=== PATIENT | female | born 1985 | race Caucasian/White ===

== ENCOUNTER 2018-05-11 10:20 | Emergency (ER) | payer OTHER ==
[2018-05-11 10:25] VITALS: RESP 18
[2018-05-11] MEDS ORDERED: KETOROLAC 30 MG/ML 1 ML VIAL IVP STA (10:30)
[2018-05-11] MEDS ORDERED: ONDANSETRON 4 MG/2 ML VIAL IVP STA (10:30)
[2018-05-11] MEDS ORDERED: SODIUM CHLORIDE 0.9% 1,000 ML IV STA (10:30)
--- NOTE | 2018-05-11 10:32 | ED ---
Abdominal Pain HPI - General Chief Complaint: Abdominal Pain Stated Complaint: ABDOMINAL PAIN Time Seen by Provider: 05/11/18 10:26 Source: patient, RN notes reviewed Mode of arrival: ambulatory Limitations: no limitations - History of Present Illness Initial Comments: This is a 32-year-old female presents emergency Department with chief complaint of right flank pain. Patient states it started slightly last night worsened this morning. She now has developed nausea and vomiting. Denies any diarrhea, constipation, dysuria, hematuria. Patient's had prior hysterectomy no other abdominal surgeries. Patient denies fever, chills, chest pain or shortness of breath. Patient states that she has no history kidney stones. Patient offers no other complaints. She states nothing makes the pain feel better or worse. - Related Data Home Medications Medication Instructions Recorded Confirmed No Known Home Medications 01/06/14 01/06/14 Allergies Allergy/AdvReac Type Severity Reaction Status Date / Time adhesive Allergy Unknown Unknown Verified 01/06/14 09:25 codeine Allergy Unknown Unknown Verified 01/06/14 09:25 morphine Allergy Unknown Unknown Verified 01/06/14 09:25 Sulfa (Sulfonamide Allergy Unknown Unknown Verified 01/06/14 09:25 Antibiotics) Review of Systems ROS Statement: Those systems with pertinent positive or pertinent negative responses have been documented in the HPI. ROS Other: All systems not noted in ROS Statement are negative. Past Medical History Past Medical History: Asthma History of Any Multi-Drug Resistant Organisms: None Reported Past Surgical History: Section, Hysterectomy Additional Past Surgical History / Comment(s): ablation-cervical, upper and lower gi scope Past Psychological History: No Psychological Hx Reported Smoking Status: Current every day smoker Past Alcohol Use History: None Reported Past Drug Use History: Marijuana General Exam Limitations: no limitations General appearance: alert, in no apparent distress Respiratory exam: Present: normal lung sounds bilaterally. Absent: respiratory distress, wheezes, rales, rhonchi, stridor Cardiovascular Exam: Present: regular rate, normal rhythm, normal heart sounds. Absent: systolic murmur, diastolic murmur, rubs, gallop, clicks GI/Abdominal exam: Present: soft, tenderness (Minimal discomfort with palpation over the right lower), normal bowel sounds. Absent: distended, guarding, rebound, rigid Back exam: Absent: CVA tenderness (R), CVA tenderness (L) Skin exam: Present: warm, dry, intact, normal color. Absent: rash Course Vital Signs 05/11/18 10:23 Temperature 97.9 F Pulse Rate 85 Respiratory 18 Rate Blood Pressure 119/63 O2 Sat by Pulse 98 Oximetry Medical Decision Making - Medical Decision Making 32-year-old female presented emergency Department for right-sided abdominal pain. Patient had lab work, CT which showed no acute abnormality. Patient's pain initially seen to be related to a kidney stone though not evident on CT. Patient has had moderate stool on the right side and be contrary to patient's pain. Patient will be discharged with ibuprofen and advise follow-up PCP and return for any worsening symptoms. - Lab Data Result diagrams: 05/11/18 10:45 05/11/18 10:45 Lab Results 05/11/18 05/11/18 05/11/18 Range/Units 10:45 10:45 10:45 WBC 9.0 (3.8-10.6) k/uL RBC 5.18 (3.80-5.40) m/uL Hgb 15.8 (11.4-16.0) gm/dL Hct 46.0 (34.0-46.0) % MCV 88.8 (80.0-100.0) fL MCH 30.6 (25.0-35.0) pg MCHC 34.4 (31.0-37.0) g/dL RDW 12.6 (11.5-15.5) % Plt Count 268 (150-450) k/uL Neutrophils % 68 % Lymphocytes % 20 % Monocytes % 8 % Eosinophils % 2 % Basophils % 1 % Neutrophils # 6.1 (1.3-7.7) k/uL Lymphocytes # 1.8 (1.0-4.8) k/uL Monocytes # 0.7 (0-1.0) k/uL Eosinophils # 0.2 (0-0.7) k/uL Basophils # 0.0 (0-0.2) k/uL Sodium 139 (137-145) mmol/L Potassium 5.0 (3.5-5.1) mmol/L Chloride 106 (98-107) mmol/L Carbon Dioxide 23 (22-30) mmol/L Anion Gap 10 mmol/L BUN 12 (7-17) mg/dL Creatinine 0.70 (0.52-1.04) mg/dL Est GFR (CKD-EPI)AfAm >90 (>60 ml/min/1.73 sqM) Est GFR (CKD-EPI)NonAf >90 (>60 ml/min/1.73 sqM) Glucose 102 H (74-99) mg/dL Calcium 9.4 (8.4-10.2) mg/dL Total Bilirubin 0.5 (0.2-1.3) mg/dL AST 36 (14-36) U/L ALT 38 (9-52) U/L Alkaline Phosphatase 47 (38-126) U/L Total Protein 7.6 (6.3-8.2) g/dL Albumin 4.1 (3.5-5.0) g/dL Amylase 57 (30-110) U/L Lipase 40 (23-300) U/L Urine Color Light Yellow Urine Appearance Clear (Clear) Urine pH 5.5 (5.0-8.0) Ur Specific [place] 1.014 (1.001-1.035) Urine Protein Negative (Negative) Urine Glucose (UA) Negative (Negative) Urine Ketones Negative (Negative) Urine Blood Small H (Negative) Urine Nitrite Negative (Negative) Urine Bilirubin Negative (Negative) Urine Urobilinogen <2.0 (<2.0) mg/dL Ur Leukocyte Esterase Negative (Negative) Urine RBC 1 (0-5) /hpf Urine WBC <1 (0-5) /hpf Ur Squamous Epith Cells 1 (0-4) /hpf Urine Mucus Rare H (None) /hpf Disposition Clinical Impression: Abdominal pain Disposition: HOME SELF-CARE Condition: Stable Instructions: Abdominal Pain (ED) Additional Instructions: Please return to the Emergency Department if symptoms worsen or any other concerns. Is patient prescribed a controlled substance at d/c from ED?: No Referrals: Collin Galvez MD [Primary Care Provider] - 1-2 days Time of Disposition: 12:42
[2018-05-11 11:16] LABS: Appearance,Urine Clear (Clear); Bilirubin,Urine Negative (Negative); Blood,Urine Small (Negative); Color,Urine Light Yellow; Glucose,Urine (UA) Negative (Negative); Ketones,Urine Negative (Negative); Leukocyte Esterase,Urine Negative (Negative); Mucus,Urine Rare /hpf; Nitrite,Urine Negative (Negative); PH, Urine 5.5 (5.0-8.0); Protein,Urine Negative (Negative); RBC,Urine 1 /hpf (0-5); Specific Gravity,Urine 1.014 (1.001-1.035); Squamous Epithelial Cell,Urine 1 /hpf (0-4); Urobilinogen,Urine <2.0 mg/dL (<2.0); WBC,Urine <1 /hpf (0-5)
[2018-05-11 11:21] LABS: Albumin 4.1 g/dL (3.5-5.0); Amylase 57 U/L (30-110); Anion Gap 10 mmol/L; Calcium 9.4 mg/dL (8.4-10.2); Carbon Dioxide 23 mmol/L (22-30); Chloride 106 mmol/L (98-107); Glucose 102 mg/dL (74-99); Lipase 40 U/L (23-300); Sodium 139 mmol/L (137-145); Total Bilirubin 0.5 mg/dL (0.2-1.3); Total Protein 7.6 g/dL (6.3-8.2)
[2018-05-11 11:25] LABS: ALT 38 U/L (9-52); AST 36 U/L (14-36); Alkaline Phosphatase 47 U/L (38-126); Blood Urea Nitrogen 12 mg/dL (7-17)
[2018-05-11 11:26] LABS: RDW 12.6 % (11.5-15.5)
[2018-05-11 11:27] LABS: Basophils % (A) 1 %; Eosinophils # (A) 0.2 k/uL (0-0.7); Eosinophils % (A) 2 %; HGB 15.8 gm/dL (11.4-16.0); Lymphocytes # (A) 1.8 k/uL (1.0-4.8); Lymphocytes % (A) 20 %; MCH 30.6 pg (25.0-35.0); MCHC 34.4 g/dL (31.0-37.0); MCV 88.8 fL (80.0-100.0); Mean Platelet Volume 8.6; Monocytes # (A) 0.7 k/uL (0-1.0); Monocytes % (A) 8 %; Neutrophils # (A) 6.1 k/uL (1.3-7.7); Neutrophils % (A) 68 %; Platelet Count 268 k/uL (150-450); RBC 5.18 m/uL (3.80-5.40)
--- NOTE | 2018-05-11 12:35 | CT ---
EXAMINATION TYPE: CT abdomen pelvis w con DATE OF EXAM: 05/11/2018 REFERENCE: Previous study dated 05/29/2010. HISTORY: Right flank pain CT DLP: 541.7 mGy Automated exposure control for dose reduction was used. TECHNIQUE: Helical acquisition through the abdomen and pelvis was obtained following the oral ingesti on of without Oral Contrast and following intravenous administration of 100 mL of Isovue 300. The camille a was reformatted in axial, coronal and sagittal projections. FINDINGS: Visualized portions of the lungs are clear. There is no pleural or pericardial fluid. The h eart is not enlarged. Within the abdomen, the liver, spleen and gallbladder are unremarkable. Both adrenal glands are normal. Both kidneys demonstrate function and appear morphologically normal. The pancreas is unremarkable. There is no significant retroperitoneal, iliac or inguinal adenopathy. The bladder is unremarkable. The uterus and ovaries are not visualized. There is no significant diverticular change and there is no radiographic evidence of diverticulitis. The appendix is normal. Small bowel loops are normal in caliber. There is no free fluid and no free air. There is mild facet arthropathy at L5-S1 level. No bony lesion is seen. IMPRESSION: NO ACUTE INFLAMMATORY ABNORMALITY.
[2018-05-11 13:32] VITALS: BP 98/49; PULSE 60; TEMP 98
== END 2018-05-11 13:32 | disposition home or self-care (01) ==
LOC: EC 10:20
DX: R10.31 Right lower quadrant pain (principal); R11.2 Nausea with vomiting, unspecified; F17.200 Nicotine dependence, unspecified, uncomplicated; Z91.048 Other nonmedicinal substance allergy status; Z88.5 Allergy status to narcotic agent; Z88.2 Allergy status to sulfonamides; Z90.710 Acquired absence of both cervix and uterus
CPT/HCPCS: 36415; 80053; 82150; 83690; 85025; 81001; 74177; 99284; 96374; 96375; 96361 ×2; J2405; J1885; Q9967

== ENCOUNTER → 2018-07-24 | Outpatient (CLI) | payer OTHER ==
--- NOTE | 2018-07-24 11:34 | MR ---
EXAMINATION TYPE: MR hummel/elsa wo con DATE OF EXAM: 07/24/2018 9:16 AM COMPARISON: NONE HISTORY: Neck pain, Low back pain Multiplanar MultiSpin echo imaging of the cervical spine was performed. Comparison: none C2-C3: No evidence for degenerative disc disease. No disc bulge/herniation or protrusion. No Canal stenosis. Foramina are patent bilaterally. C3-C4: No evidence for degenerative disc disease. No disc bulge/herniation or protrusion. No Canal stenosis. Foramina are patent bilaterally. C4-C5: No evidence for degenerative disc disease. No disc bulge/herniation or protrusion. No Canal stenosis. Foramina are patent bilaterally. C5-C6: No evidence for degenerative disc disease. No disc bulge/herniation or protrusion. No Canal stenosis. Foramina are patent bilaterally. C6-C7: Mild decreased signal loss of height. Mild posterior disc bulge. No Canal stenosis. Foramina are patent bilaterally. C7-T1: No evidence for degenerative disc disease. No disc bulge/herniation or protrusion. No Canal stenosis. Foramina are patent bilaterally. Cervical segments are intact. There is normal alignment. Cervical spinal cord is of normal signal. Craniovertebral junction relationships are within normal limits. IMPRESSION: 1. Disc desiccation and disc bulging noted at C6-7. EXAMINATION TYPE: MR hobbs wo con DATE OF EXAM: 07/24/2018 9:16 AM COMPARISON: NONE HISTORY: Neck pain, Low back pain Multiplanar, MultiSpin echo imaging of the lumbar spine was performed. L1-L2: Normal disc appearance without desiccation. No herniation, protrusion or disc bulging. No ca nal stenosis is present. Foramina are patent bilaterally. L2-L3: Normal disc appearance without desiccation. No herniation, protrusion or disc bulging. No ca nal stenosis is present. Foramina are patent bilaterally. L3-L4: Normal disc appearance without desiccation. No herniation, protrusion or disc bulging. No ca nal stenosis is present. Foramina are patent bilaterally. L4-L5: Normal disc appearance without desiccation. No herniation, protrusion or disc bulging. No ca nal stenosis is present. Foramina are patent bilaterally. L5-S1: Normal disc appearance without desiccation. No herniation, protrusion or disc bulging. No ca nal stenosis is present. Foramina are patent bilaterally. Lumbar segments are intact. No paraspinal masses are identified. Conus medullaris has a normal appe arance. IMPRESSION: 1. Normal study.
== END | disposition home or self-care (01) ==
LOC: RADMRIMAIN 08:27
PROVIDERS: ATTEND Physician Assistant
DX: M50.223 Other cervical disc displacement at C6-C7 level (principal); M54.5 Low back pain; Z88.2 Allergy status to sulfonamides; Z88.5 Allergy status to narcotic agent
CPT/HCPCS: 72141; 72148

== ENCOUNTER 2022-03-08 01:57 | Emergency (ER) | payer OTHER ==
[2022-03-08] MEDS ORDERED: ONDANSETRON ODT 4 MG TAB PO STA (02:18)
[2022-03-08] MEDS ORDERED: BACITRACIN OINT 1 EACH PACKET TOPICAL ONE (02:18)
[2022-03-08] MEDS ORDERED: HYDROcodone/APAP 5-325MG 1 EACH TAB PO STA (02:18)
[2022-03-08] MEDS ORDERED: LIDOCAINE 1% INJ 10MG/ML (5 ML VIAL-PF) SQ ONE (02:18)
--- NOTE | 2022-03-08 02:53 | XR ---
ADDENDUM - Added by Ash Magaña M.D. on 03/08/2022 2:53 AM (-04:00) Correction: Soft tissue gas in the volar aspect of distal forearm and wrist. EXAM: XR Left Forearm, 2 Views CLINICAL HISTORY: ITS.[email or web address] XR Reason: dog bite, left lower forearm TECHNIQUE: Frontal and lateral views of the left forearm. COMPARISON: No relevant prior studies available. FINDINGS: Bones/joints: Unremarkable. No fracture. No dislocation. Soft tissues: No soft tissue gas or radiopaque foreign object. IMPRESSION: No fracture or radiopaque foreign object.
--- NOTE | 2022-03-08 02:54 | XR ---
EXAM: XR Right Hand Complete, 2 Views CLINICAL HISTORY: ITS.[email or web address] XR Reason: dog bite, right hand, 2nd and 3rd digits TECHNIQUE: Frontal, lateral views of the right hand. Exam is limited due to contracted position of the hand. COMPARISON: No relevant prior studies available. FINDINGS: Bones/joints: Unremarkable. No fracture. No dislocation. Soft tissues: Soft tissue gas in the volar aspect of distal forearm and wrist. No radiopaque foreign object. IMPRESSION: No fracture or radiopaque foreign object. Soft tissue gas in the volar aspect of distal forearm and wrist.
--- NOTE | 2022-03-08 02:58 | ED ---
General Adult HPI - General Stated complaint: Dog bite Time Seen by Provider: 03/08/22 02:06 Source: patient, RN notes reviewed Mode of arrival: wheelchair Limitations: no limitations - History of Present Illness Initial comments: 36-year-old female presents to the emergency department for evaluation of injuries sustained in a dog bite, onset 60 minutes prior to arrival. Patient states she had a similar episode approximately a month ago with the same animal and required a tetanus shot and suture repair at that time. She complains of injuries to her left forearm and right hand. She is very anxious upon arrival but denies any additional injuries or complaints. - Related Data Previous Rx's Medication Instructions Recorded Ketorolac [Toradol] 10 mg PO Q8HR #15 tab 05/11/18 Amoxic-Pot Clav 875-125Mg 1 tab PO BID 7 Days #14 tab 03/08/22 [Augmentin 875-125] HYDROcodone/APAP 5-325MG [Evart 5] 1 each PO Q6HR PRN #12 tab 03/08/22 Ibuprofen [Motrin] 600 mg PO Q8HR PRN #20 tab 03/08/22 Allergies Allergy/AdvReac Type Severity Reaction Status Date / Time adhesive Allergy Unknown Unknown Verified 02/18/19 01:11 codeine Allergy Unknown Unknown Verified 02/18/19 01:11 morphine Allergy Unknown Unknown Verified 02/18/19 01:11 Sulfa (Sulfonamide Allergy Unknown Unknown Verified 02/18/19 01:11 Antibiotics) Review of Systems ROS Statement: Those systems with pertinent positive or pertinent negative responses have been documented in the HPI. ROS Other: All systems not noted in ROS Statement are negative. Past Medical History Past Medical History: Asthma History of Any Multi-Drug Resistant Organisms: None Reported Past Surgical History: Section, Hysterectomy Additional Past Surgical History / Comment(s): ablation-cervical, upper and lower gi scope Past Psychological History: No Psychological Hx Reported Past Alcohol Use History: None Reported Past Drug Use History: Marijuana General Exam Limitations: no limitations General appearance: alert, in distress (Well-developed, well-nourished female in moderate distress due to pain and anxiety.) Head exam: Present: atraumatic, normocephalic Eye exam: Present: normal appearance. Absent: scleral icterus, conjunctival injection, periorbital swelling Neck exam: Present: normal inspection, full ROM. Absent: tenderness, lymphadenopathy Respiratory exam: Present: normal lung sounds bilaterally. Absent: respiratory distress, wheezes, rales, rhonchi, stridor, chest wall tenderness Cardiovascular Exam: Present: regular rate, normal rhythm, normal heart sounds. Absent: systolic murmur, diastolic murmur, rubs, gallop, clicks GI/Abdominal exam: Present: soft. Absent: distended, tenderness, guarding, rebound, rigid Left Upper Arm exam: Present: normal inspection, full ROM Elbow exam: Present: normal inspection, full ROM Forearm Wrist exam: Present: tenderness, swelling, laceration (two flap lacerations/bite wounds to distal left forearm) Vascular: Present: normal capillary refill. Absent: vascular compromise Right Elbow exam: Present: normal inspection, full ROM Forearm Wrist exam: Present: normal inspection, full ROM Hand Wrist exam: Present: swelling (third digit), ecchymosis (first digit, distal phalanx), other (skin tear ulnar aspect of the third digit) Vascular: Present: normal capillary refill. Absent: vascular compromise, Pallo Back exam: Present: normal inspection, full ROM Neurological exam: Present: alert, oriented X3, normal gait Psychiatric exam: Present: anxious Skin exam: Present: warm, dry, normal color Course Vital Signs 03/08/22 04:26 Temperature 98 F Pulse Rate 90 Respiratory 18 Rate Blood Pressure 139/80 O2 Sat by Pulse 98 Oximetry Procedures - Laceration Laceration #1 Consent Obtained: verbal consent Indication: laceration Site: upper extremity (volar surface, left lower forearm) Size (cm): 3 Description: linear Depth: simple, single layer Anesthetic Used: lidocaine 1% Pre-repair: wound explored, irrigated extensively, deep structures intact Type of Sutures: nylon Size of Sutures: 4-0 Number of Sutures: 6 Technique: simple, interrupted Patient Tolerated Procedure: well, no complications Laceration #2 Consent Obtained: verbal consent Indication: laceration Site: upper extremity Size (cm): 1 Description: linear Depth: simple, single layer Anesthetic Used: lidocaine 1% Anesthesia Technique: local infiltration Pre-repair: wound explored, irrigated extensively, deep structures intact Type of Sutures: nylon Size of Sutures: 4-0 Number of Sutures: 1 Technique: simple, interrupted Patient Tolerated Procedure: well, no complications Additional Comments: Wound size 0.5cm Laceration #3 Consent Obtained: verbal consent Indication: laceration Site: upper extremity Size (cm): 1 Description: linear Depth: simple, single layer Anesthetic Used: lidocaine 1% Anesthesia Technique: local infiltration Pre-repair: wound explored, irrigated extensively, deep structures intact Type of Sutures: nylon, vicryl Size of Sutures: 4-0 Number of Sutures: 2 Technique: simple, interrupted Patient Tolerated Procedure: well, no complications Medical Decision Making - Medical Decision Making 36-year-old female presents to the emergency department for evaluation of dog bite injuries to the left forearm and third digit of the right hand. Upon arr ival, bleeding was controlled and patient was very anxious. There are three bite wounds to dorsal surface of the left lower forearm. Distal sensation intact. ROM baseline for patient due to recent carpal tunnel surgery. Also has skin tear to the ulnar aspect of the third digit on the right hand. Reports diminished sensation along the median nerve. Wounds soaked and thoroughly irrigated. X-rays showed no foreign body or radiopaque objects. Td up-to-date. Given medications for pain and nausea as well as antibiotic. Wounds were loosely approximated. Bacitracin dressing applied. Instructed on wound care and monitoring. Dressed importance of antibiotic complaints. Encouraged to follow up with PCP for wound recheck in 48-72 hours. Return parameters discussed in detail. Patient verbalizes understanding and agrees with this plan. Attending: Marvin. - Radiology Data Radiology results: report reviewed, image reviewed X-ray of the right hand was obtained. Report was reviewed in its entirety. Impression per Dr. Magaña is no fracture or radiopaque foreign object. X-ray of the left forearm was obtained. Report was reviewed in its entirety. Impression per Dr. Magaña is no fracture or radiopaque foreign object. Soft tissue gas in the volar aspect of the distal forearm and wrist. Disposition Clinical Impression: Dog bite of left wrist Disposition: HOME SELF-CARE Condition: Stable Instructions (If sedation given, give patient instructions): Animal Bite (ED), Care For Your Stitches (ED) Additional Instructions: Gently cleanse the wounds twice daily with mild soap and water. Applied bacitracin and fresh dressing. Keep affected extremities elevated while at rest. May apply ice for no more than 20 minutes per hour. Avoid submerging hands in any contaminated water sources. Monitor carefully for signs of infection including foul-smelling drainage from the wound, increased redness, or worsening pain. Sutures to be removed in 7-10 days. This may be done here, urgent care, or at her family doctor's office. May take Evart for more severe pain. Motrin for mild pain. Augmentin is an antibiotic that he will be prescribed. Please take the full course of this medicine. Follow-up with your PCP for a wound recheck in 48 hours. See your orthopedist for reevaluation as soon as possible due to numbness and tingling in the left hand. Return to the emergency department with any new, worsening, or concerning symptoms. Prescriptions: Amoxic-Pot Clav 875-125Mg [Augmentin 875-125] 1 tab PO BID 7 Days #14 tab Ibuprofen [Motrin] 600 mg PO Q8HR PRN #20 tab PRN Reason: Pain HYDROcodone/APAP 5-325MG [Evart 5] 1 each PO Q6HR PRN #12 tab PRN Reason: Pain Is patient prescribed a controlled substance at d/c from ED?: Yes When asked, does pt state using other controlled substances?: No If prescribed controlled substance>3 days was MAPS reviewed?: Prescribed <3 Days If opioid is for acute pain is fill amount 7 days or less?: Yes If Rx opioid, was Start Talking consent form obtained?: Yes Referrals: Collin Galvez MD [Primary Care Provider] - 1-2 days Time of Disposition: 04:17
[2022-03-08] MEDS ORDERED: ACET/COD 300 MG/30 MG STARTER PACK 6 TAB BTL PO STA (04:11)
[2022-03-08] MEDS ORDERED: AMOXIC-POT CLAV 875-125MG 1 EACH TAB PO STA (04:13)
[2022-03-08 04:28] VITALS: BP 139/80; PULSE 90; RESP 18; TEMP 98
== END 2022-03-08 04:30 | disposition home or self-care (01) ==
LOC: EC 01:57
DX: S51.812A Laceration without foreign body of left forearm, initial encounter (principal); J45.909 Unspecified asthma, uncomplicated; F12.90 Cannabis use, unspecified, uncomplicated; Z88.2 Allergy status to sulfonamides; L23.1 Allergic contact dermatitis due to adhesives; Z88.5 Allergy status to narcotic agent; Z88.6 Allergy status to analgesic agent; W54.0XXA Bitten by dog, initial encounter
CPT/HCPCS: 99283; 12002; 73090; 73120; J2001

== ENCOUNTER 2022-07-12 01:26 | Emergency (ER) | payer OTHER ==
[2022-07-12 01:52] VITALS: TEMP 97.7
[2022-07-12] MEDS ORDERED: methylPREDNISolone SOD SUCCI 125 MG/2 ML VIAL IM STA (01:54)
[2022-07-12] MEDS ORDERED: IPRATROPIUM-ALBUTEROL 3 ML NEB INHALATION STA (01:54)
--- NOTE | 2022-07-12 02:07 | XR ---
EXAMINATION TYPE: XR chest 2V DATE OF EXAM: 07/12/2022 COMPARISON: 05/31/2010 HISTORY: Cough TECHNIQUE: FINDINGS: Heart is normal. Lungs are clear of consolidation. There are no hilar masses. Costophrenic angles are clear. The bony thorax is intact. The pulmonary vascularity is normal. IMPRESSION: Normal chest. There is clearing of the right lower lobe pneumonia compared to old exam.
--- NOTE | 2022-07-12 02:26 | ED ---
SOB HPI - General Chief Complaint: Shortness of Breath Stated Complaint: Difficulty Breathing, Sore throat Time Seen by Provider: 07/12/22 01:45 Source: patient, RN notes reviewed Mode of arrival: ambulatory - History of Present Illness Initial Comments: This is a pleasant 36-year-old cigarette smoker with a history of asthma. Patient presents to the emergency department complaining of runny nose, cough, shortness of breath. Patient states that her asthma has been flared up by whatever illness she has. Patient exposed to both of her daughters who have similar symptoms of cough and runny nose. No known fever. Patient has no history of immunosuppression. Patient has been smoking over one pack a day for 24 years. No headache, no fever or chills, no changes in vision or hearing, no sore throat or difficulty with speech, no neck pain, no chest pain, COUGH, nonproductive, no abdominal pain, no nausea or vomiting, no changes in urination or bowel movements, no numbness or tingling, no extremity pain, no skin rashes or lesions. Past medical, surgical, social, and family history reviewed. MD Complaint: shortness of breath, cough - Related Data Previous Rx's Medication Instructions Recorded Ketorolac [Toradol] 10 mg PO Q8HR #15 tab 05/11/18 Amoxic-Pot Clav 875-125Mg 1 tab PO BID 7 Days #14 tab 03/08/22 [Augmentin 875-125] HYDROcodone/APAP 5-325MG [[place] 5] 1 each PO Q6HR PRN #12 tab 03/08/22 Ibuprofen [Motrin] 600 mg PO Q8HR PRN #20 tab 03/08/22 Albuterol Inhaler [Ventolin Hfa 2 puff INHALATION Q4HR PRN #1 each 07/12/22 Inhaler] Azithromycin [Zithromax Tri-Christian (3 500 mg PO DAILY 3 Days #3 tab 07/12/22 tabs)] predniSONE [Deltasone] 40 mg PO DIRECTED 5 Days #10 tab 07/12/22 Allergies Allergy/AdvReac Type Severity Reaction Status Date / Time adhesive Allergy Unknown Unknown Verified 02/18/19 01:11 codeine Allergy Unknown Unknown Verified 02/18/19 01:11 morphine Allergy Unknown Unknown Verified 02/18/19 01:11 Sulfa (Sulfonamide Allergy Unknown Unknown Verified 02/18/19 01:11 Antibiotics) Review of Systems ROS Statement: Those systems with pertinent positive or pertinent negative responses have been documented in the HPI. ROS Other: All systems not noted in ROS Statement are negative. Past Medical History Past Medical History: Asthma History of Any Multi-Drug Resistant Organisms: None Reported Past Surgical History: Section, Hysterectomy Additional Past Surgical History / Comment(s): ablation-cervical, upper and lower gi scope Past Psychological History: No Psychological Hx Reported Past Alcohol Use History: None Reported Past Drug Use History: Marijuana General Exam - General Exam Comments Initial Comments: Patient in mild distress. Patient has active wheezing. Does not appear to be ill or toxic otherwise. Mildly tachycardic. General appearance: alert, in no apparent distress Head exam: Present: atraumatic, normocephalic, normal inspection Eye exam: Present: normal appearance, PERRL, EOMI. Absent: scleral icterus, conjunctival injection, periorbital swelling ENT exam: Present: normal exam, normal oropharynx, mucous membranes dry, mucous membranes moist, normal external ear exam Neck exam: Present: normal inspection, full ROM. Absent: tenderness, meningismus, lymphadenopathy Respiratory exam: Present: respiratory distress, wheezes, accessory muscle use, prolonged expiratory. Absent: normal lung sounds bilaterally, rales, rhonchi, stridor, chest wall tenderness, decreased breath sounds Cardiovascular Exam: Present: normal rhythm, tachycardia, normal heart sounds. Absent: systolic murmur, diastolic murmur, rubs, gallop, clicks GI/Abdominal exam: Present: soft, normal bowel sounds. Absent: distended, tenderness, guarding, rebound, rigid Extremities exam: Present: normal inspection, full ROM, normal capillary refill. Absent: tenderness, pedal edema, joint swelling, calf tenderness Back exam: Present: normal inspection Neurological exam: Present: alert, oriented X3, CN II-XII intact Psychiatric exam: Present: normal affect, normal mood Skin exam: Present: warm, dry, intact, normal color. Absent: rash Course Vital Signs 07/12/22 07/12/22 07/12/22 01:30 01:49 02:18 Temperature 97.6 F 97.7 F Pulse Rate 117 H 64 112 H Respiratory 16 18 Rate Blood Pressure 116/69 98/75 O2 Sat by Pulse 99 100 Oximetry 07/12/22 02:28 Temperature Pulse Rate 116 H Respiratory Rate Blood Pressure O2 Sat by Pulse Oximetry - Reevaluation(s) Reevaluation #1: 07/12/22 02:55 Medical record is reviewed Symptoms are improved here in the emergency department Patient is informed of results and questions answered Patient in no distress Repeat cardiopulmonary examination reveals much better air movement, still has some scant wheezing. No tachypnea. Reevaluation #2: 07/12/22 02:58 Patient improved on reevaluation. SpO2 100% on room air. No tachypnea. I did offer further workup for the patient which she is deferring stating that she feels better and wants to be discharged. Patient alert and oriented able make her own medical decisions. Procedures - Smoking Cessation Time Spent Discussing Smoking Cessation w/Patient (Minutes): 5 Patient Acknowledges Need for Cessation: Yes Medical Decision Making - Medical Decision Making Patient symptomology consistent with a COPD exacerbation. Patient was given a DuoNeb treatment here and injection of 125 mg Solu-Medrol. Patient was reevaluated prior to discharge and was much improved. Air movement was better. Wheezing was decreased. We'll cover the patient with Zithromax, prednisone 30 mg daily for 5 days, smoking cessation, albuterol inhaler 2 puffs every 4 hours as needed. Patient told to follow-up with her regular physician without fail. I did offer further workup and observation to the patient which she is deferring stating that she feels well enough to go home. Patient was told to return to the ER for any signs or symptoms worsen. Told to return immediately if any other problems arise. All questions answered. Treatment plan discussed. Patient in agreement Every effort has been made to ensure accuracy of this dictation. However, due to the limitations of electronic medical records and dictation devices, errors in charting still occur. The case was discussed in detail with ED attending physician. Presentation, findings, treatment plan discussed in detail. Manager Cleaning Dr. Wong - Lab Data Lab Results 07/12/22 Range/Units 02:00 Coronavirus (PCR) Not Detected (Not Detectd) Disposition Clinical Impression: Acute exacerbation of COPD with asthma, Cigarette smoker Disposition: HOME SELF-CARE Condition: Good Instructions (If sedation given, give patient instructions): How to Stop Smoking (ED), COPD (Chronic Obstructive Pulmonary Disease) (ED) Prescriptions: predniSONE [Deltasone] 40 mg PO DIRECTED 5 Days #10 tab Albuterol Inhaler [Ventolin Hfa Inhaler] 2 puff INHALATION Q4HR PRN #1 each PRN Reason: Wheezing Azithromycin [Zithromax Tri-Christian (3 tabs)] 500 mg PO DAILY 3 Days #3 tab Is patient prescribed a controlled substance at d/c from ED?: No Referrals: Collin Galvez MD [REFERRING] - 1-2 days Time of Disposition: 02:59
[2022-07-12] MEDS ORDERED: AZITHROMYCIN 500 MG TAB PO STA (02:52)
[2022-07-12 03:41] VITALS: BP 129/68; PULSE 71; RESP 17
== END 2022-07-12 03:42 | disposition home or self-care (01) ==
LOC: EC 01:26
DX: J44.1 Chronic obstructive pulmonary disease with (acute) exacerbation (principal); F17.210 Nicotine dependence, cigarettes, uncomplicated; J45.909 Unspecified asthma, uncomplicated; F12.90 Cannabis use, unspecified, uncomplicated; Z79.51 Long term (current) use of inhaled steroids; Z79.899 Other long term (current) drug therapy; L23.1 Allergic contact dermatitis due to adhesives; Z88.5 Allergy status to narcotic agent; Z88.2 Allergy status to sulfonamides
CPT/HCPCS: 94640; 87635; 71046; 99285; 96372; J2930

== ENCOUNTER → 2022-08-11 | Outpatient (CLI) | payer OTHER ==
--- NOTE | 2022-08-29 01:37 | HM ---
HOLTER MONITOR REPORT This is a 72-hour Holter. INDICATIONS: Tachycardia. FINDINGS: Underlying rhythm is sinus with an average heart rate of 84 beats per minute. Heart rate varied from 49 beats per minute to 147 beats per minute. There were episodes of sinus bradycardia and sinus tachycardia noted. No significant cardiac arrhythmia other than the occasional PVCs noted. CONCLUSIONS: This 72-hour Holter monitor shows sinus rhythm with episodes of sinus tachycardia and sinus bradycardia without any pauses with occasional PVCs. MMODL / IJN: [id number] /
== END | disposition home or self-care (01) ==
LOC: RADECHMAIN 07:21
PROVIDERS: ATTEND Internal Medicine
DX: R00.0 Tachycardia, unspecified (principal); R00.1 Bradycardia, unspecified
CPT/HCPCS: 93225; 93226

== ENCOUNTER 2023-11-03 00:14 | Emergency (ER) | payer OTHER ==
[2023-11-03] MEDS: HYDROmorphone 0.5 MG/0.5 ML SYRINGE IVP STA (01:00)
[2023-11-03] MEDS: MORPHINE SULFATE 4 MG/ML SYRINGE IVP STA (01:05)
[2023-11-03] MEDS: SODIUM CHLORIDE 0.9% 1,000 ML IV STA (01:05)
[2023-11-03 01:13] LABS: Basophils # (A) 0.1 k/uL (0-0.2); Basophils % (A) 1 %; Eosinophils # (A) 0.3 k/uL (0-0.7); Eosinophils % (A) 3 %; HCT 37.9 % (34.0-46.0); HGB 13.9 gm/dL (11.4-16.0); Lymphocytes # (A) 3.3 k/uL (1.0-4.8); Lymphocytes % (A) 33 %; MCH 32.5 pg (25.0-35.0); MCHC 36.6 g/dL (31.0-37.0); MCV 88.9 fL (80.0-100.0); Mean Platelet Volume 8.1; Monocytes # (A) 0.6 k/uL (0-1.0); Monocytes % (A) 6 %; Neutrophils # (A) 5.6 k/uL (1.3-7.7); Neutrophils % (A) 56 %; Platelet Count 316 k/uL (150-450); RBC 4.26 m/uL (3.80-5.40); RDW 12.9 % (11.5-15.5)
[2023-11-03] MEDS: ONDANSETRON 4 MG/2 ML VIAL IVP STA (01:22)
[2023-11-03 01:27] LABS: ALT 30 U/L (4-34); AST 33 U/L (14-36); African American GFR (CKD) >90 (>60 ml/min/1.73 sqM); Albumin 4.1 g/dL (3.5-5.0); Alcohol <10 mg/dL; Alkaline Phosphatase 57 U/L (38-126); Anion Gap 6 mmol/L; Blood Urea Nitrogen 18 mg/dL (7-17); Calcium 9.3 mg/dL (8.4-10.2); Carbon Dioxide 23 mmol/L (22-30); Chloride 107 mmol/L (98-107); Glucose 102 mg/dL (74-99); Non-African American GFR(CKD) 88 (>60 ml/min/1.73 sqM); Sodium 136 mmol/L (137-145); Total Bilirubin 0.3 mg/dL (0.2-1.3); Total Protein 7.2 g/dL (6.3-8.2)
[2023-11-03 01:33] LABS: INR 0.9 (<1.2); Prothrombin Time 9.9 sec (10.0-12.5)
[2023-11-03 01:36] LABS: Partial Thromboplastin Time 20.3 sec (22.0-30.0)
--- NOTE | 2023-11-03 01:45 | CT ---
EXAM: CT Thoracic Spine Without Intravenous Contrast CLINICAL HISTORY: ITS.REASON CT Reason: trauma TECHNIQUE: Axial computed tomography images of the thoracic spine without intravenous contrast. CTDI is 11.7 mGy and DLP is 333.2 mGy-cm. This CT exam was performed using one or more of the following dose reduction techniques: automated exposure control, adjustment of the mA and/or kV according to patient size, and/or use of iterative reconstruction technique. COMPARISON: No relevant prior studies available. FINDINGS: Vertebrae: No acute fracture. No subluxation. Discs/spinal canal/neural foramina: No spinal canal stenosis. Soft tissues: Unremarkable. IMPRESSION: No acute findings. EXAM: CT Lumbar Spine Without Intravenous Contrast CLINICAL HISTORY: ITS.REASON CT Reason: trauma TECHNIQUE: Axial computed tomography images of the lumbar spine without intravenous contrast. CTDI is 27.7 mGy and DLP is 1548 mGy-cm. This CT exam was performed using one or more of the following dose reduction techniques: automated exposure control, adjustment of the mA and/or kV according to patient size, and/or use of iterative reconstruction technique. COMPARISON: No relevant prior studies available. FINDINGS: Vertebrae: No acute fracture. No subluxation. Discs/spinal canal/neural foramina: No significant spinal canal stenosis. Mild L4-5 and mild to moderate L5-S1 facet arthrosis Soft tissues: Unremarkable. IMPRESSION: No acute fracture.
--- NOTE | 2023-11-03 01:50 | XR ---
EXAM: XR Chest, 1 View CLINICAL HISTORY: ITS.REASON XR Reason: trauma TECHNIQUE: Frontal view of the chest. COMPARISON: No relevant prior studies available. FINDINGS: Lungs: No consolidation or mass. Pleural space: No acute findings Heart: No cardiomegaly. Bones/joints: No acute findings. IMPRESSION: No acute cardiopulmonary process.
--- NOTE | 2023-11-03 01:52 | XR ---
EXAM: XR Left Knee, 3 Views CLINICAL HISTORY: ITS.REASON XR Reason: pain TECHNIQUE: Three views of the left knee. COMPARISON: No relevant prior studies available. FINDINGS: Bones/joints: No acute fracture. No dislocation. Soft tissues: 2.2 cm calcification dorsal to the distal femur. 4 mm BB seen in the distal thigh IMPRESSION: No acute osseous abnormalities.
--- NOTE | 2023-11-03 01:52 | XR ---
EXAM: XR Pelvis, 1 or 2 Views CLINICAL HISTORY: [email or web address].REASON XR Reason: Trauma TECHNIQUE: Frontal view of the pelvis. COMPARISON: No relevant prior studies available. FINDINGS: Bones/joints: No acute fracture. No dislocation. Prior injury right hip labrum Soft tissues: Unremarkable. IMPRESSION: No acute findings.
--- NOTE | 2023-11-03 01:56 | CT ---
EXAM: CT Head Without Intravenous Contrast CLINICAL HISTORY: ITS.REASON CT Reason: trauma TECHNIQUE: Axial computed tomography images of the head/brain without intravenous contrast. CTDI is 27.6 mGy and DLP is 509.7 mGy-cm. This CT exam was performed using one or more of the following dose reduction techniques: automated exposure control, adjustment of the mA and/or kV according to patient size, and/or use of iterative reconstruction technique. COMPARISON: No relevant prior studies available. FINDINGS: Brain: No hemorrhage or mass effect. Ventricles: No hydrocephalus. Bones/joints: Unremarkable. Soft tissues: Unremarkable. Sinuses: No air fluid level. Mastoid air cells: Clear. IMPRESSION: No acute hemorrhage, hydrocephalus, or mass effect. EXAM: CT Cervical Spine Without Intravenous Contrast CLINICAL HISTORY: ITS.REASON CT Reason: trauma TECHNIQUE: Axial computed tomography images of the cervical spine without intravenous contrast. CTDI is 27.6 mGy and DLP is 509.7 mGy-cm. This CT exam was performed using one or more of the following dose reduction techniques: automated exposure control, adjustment of the mA and/or kV according to patient size, and/or use of iterative reconstruction technique. COMPARISON: No relevant prior studies available. FINDINGS: Vertebrae: No acute fracture. Nonspecific increased symmetric sclerotic changes to the cervical vertebral bodies Discs/spinal canal/neural foramina: degenerative changes. Soft tissues: No prevertebral swelling. Paraseptal emphysema upper lungs. IMPRESSION: No acute fracture or subluxation. Nonspecific increased symmetric sclerotic changes to the cervical vertebral bodies. Indeterminate etiology.
[2023-11-03 02:08] VITALS: RESP 18
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
[2023-11-03] MEDS: ACET/COD 300 MG/30 MG STARTER PACK 6 TAB BTL PO STA (03:18)
[2023-11-03 03:49] VITALS: BP 110/69; PULSE 65; TEMP 98
== END 2023-11-03 03:25 | disposition home or self-care (01) ==
LOC: EC 00:14
DX: S83.92XA Sprain of unspecified site of left knee, initial encounter (principal); J44.89 Other specified chronic obstructive pulmonary disease; F17.200 Nicotine dependence, unspecified, uncomplicated; Z88.2 Allergy status to sulfonamides; Z88.5 Allergy status to narcotic agent; Z91.048 Other nonmedicinal substance allergy status; Z88.8 Allergy status to other drugs, medicaments and biological substances; V89.2XXA Person injured in unspecified motor-vehicle accident, traffic, initial encounter; Y92.410 Unspecified street and highway as the place of occurrence of the external cause
CPT/HCPCS: 36415; 93005; 86900; 86901; 80053; 85025; 85610; 85730; 86850; 80320; 72170; 73562; 71045; 72128; 72125; 72131; 70450; 99285; 96374; 96375; 96361; 29505; L1830; J2405; J1170

== ENCOUNTER 2024-03-13 07:06 | Emergency (ER) | payer OTHER ==
[2024-03-13 07:19] VITALS: RESP 18
--- NOTE | 2024-03-13 07:32 | ED ---
Wound/Laceration HPI - General Chief Complaint: Wound/Laceration Stated Complaint: R Hand Laceration Time Seen by Provider: 03/13/24 07:29 Source: patient, RN notes reviewed Mode of arrival: ambulatory Limitations: no limitations - History of Present Illness Initial Comments: 38-year-old female presented to ER with a chief complaint of a fall. Patient states she was running up the stairs and accidentally tripped as the stairs were wet. She states she braced herself with her right hand. She does report a laceration to her right palm bleeding controlled at this time. Tetanus status up-to-date. Patient reports breaking her fourth and fifth right metacarpal approximately 4 years ago and had 2 surgical pins placed. She states she had full active range of motion prior to the fall. States since then she has been unable to flex her fifth digit. She denies any head injury, loss of consciousness or paresthesias. Denies any dizziness, lightheadedness, chest pain or shortness of breath prior to fall. - Related Data Previous Rx's Medication Instructions Recorded Ketorolac [Toradol] 10 mg PO Q8HR #15 tab 05/11/18 Amoxic-Pot Clav 875-125Mg 1 tab PO BID 7 Days #14 tab 03/08/22 [Augmentin 875-125] HYDROcodone/APAP 5-325MG [[place] 5] 1 each PO Q6HR PRN #12 tab 03/08/22 Ibuprofen [Motrin] 600 mg PO Q8HR PRN #20 tab 03/08/22 Albuterol Inhaler [Ventolin Hfa 2 puff INHALATION Q4HR PRN #1 each 07/12/22 Inhaler] Azithromycin [Zithromax Tri-Christian (3 500 mg PO DAILY 3 Days #3 tab 07/12/22 tabs)] predniSONE [Deltasone] 40 mg PO DIRECTED 5 Days #10 tab 07/12/22 Allergies Allergy/AdvReac Type Severity Reaction Status Date / Time adhesive Allergy Unknown Unknown Verified 03/13/24 07:19 codeine Allergy Unknown Unknown Verified 03/13/24 07:19 morphine Allergy Unknown Unknown Verified 03/13/24 07:19 Sulfa (Sulfonamide Allergy Unknown Unknown Verified 03/13/24 07:19 Antibiotics) Review of Systems ROS Statement: Those systems with pertinent positive or pertinent negative responses have been documented in the HPI. ROS Other: All systems not noted in ROS Statement are negative. Past Medical History Past Medical History: Asthma, COPD History of Any Multi-Drug Resistant Organisms: None Reported Past Surgical History: Section, Hysterectomy, Orthopedic Surgery Additional Past Surgical History / Comment(s): ablation-cervical, upper and lower gi scope Past Psychological History: No Psychological Hx Reported Smoking Status: Current every day smoker Past Alcohol Use History: None Reported Past Drug Use History: None Reported General Exam Limitations: no limitations General appearance: alert, in no apparent distress Respiratory exam: Present: normal lung sounds bilaterally. Absent: respiratory distress, wheezes, rales, rhonchi, stridor Cardiovascular Exam: Present: regular rate, normal rhythm, normal heart sounds. Absent: systolic murmur, diastolic murmur, rubs, gallop, clicks Extremities exam: Present: normal capillary refill, other (Patient unable to flex right fifth digit. 2+ right radial pulse. 1cm superificial laceration to right palmar aspect overlying 5th metacarpal. No active bleeding.). Absent: tenderness, pedal edema, joint swelling, calf tenderness Neurological exam: Present: alert, oriented X3, CN II-XII intact Skin exam: Present: warm, dry, intact, normal color. Absent: rash Course Vital Signs 03/13/24 07:16 Temperature 98.0 F Pulse Rate 74 Respiratory 18 Rate Blood Pressure 116/78 O2 Sat by Pulse 94 L Oximetry Medical Decision Making - Medical Decision Making Was pt. sent in by a medical professional or institution (, PA, FIRE PROTECTION DESIGNER, urgent care, hospital, or correction...) When possible be specific @ -No Did you speak to anyone other than the patient for history (EMS, parent, family, police, friend...)? What history was obtained from this source @ -No Did you review nursing and triage notes (agree or disagree)? Why? @ -I reviewed and agree with nursing and triage notes Were old charts reviewed (outside hosp., previous admission, EMS record, old EKG, old radiological studies, urgent care reports/EKG's, correction records)? Report findings @ -No old charts were reviewed Differential Diagnosis (chest pain, altered mental status, abdominal pain women, abdominal pain men, vaginal bleeding, weakness, fever, dyspnea, syncope, headache, dizziness, GI bleed, back pain, seizure, CVA, palpatations, mental health, musculoskeletal)? @ -Differential Musculoskeletal: Muscular strain, contusion, ligament sprain, fracture, arthritis, septic arthritis, bursitis, cellulitis, muscle spasm, nerve compression, DVT, arterial occlusion, herpes zoster, electrolyte abnormality, tumor.... This is not meant to be in all inclusive list EKG interpreted by me (3pts min.). @ -None X-rays interpreted by me (1pt min.). @ -Right hand x-ray interpreted by me negative for acute osseous process. As there is internal hardware present in the fifth metacarpal. CT interpreted by me (1pt min.). @ -None done U/S interpreted by me (1pt. min.). @ -None done What testing was considered but not performed or refused? (CT, X-rays, U/S, labs)? Why? @ -None What meds were considered but not given or refused? Why? @ -None Did you discuss the management of the patient with other professionals (professionals i.e. , PA, FIRE PROTECTION DESIGNER, lab, RT, psych nurse, psychotherapist social worker, recreation therapy aide, teacher, parole hearing officer, shelter case manager)? Give summary @ -No Was smoking cessation discussed for >3mins.? @ -I discussed smoking cessation for greater than 3 minutes. The risk of smoking were discussed with the patient including but not limited to risks of cancer, stroke, coronary artery disease and COPD. Also discussed with patient were multiple methods of quitting smoking. Lastly we discussed the financial cost of smoking. Was critical care preformed (if so, how long)? @ -No Were there social determinants of health that impacted care today? How? (Homelessness, low income, unemployed, alcoholism, drug addiction, transportation, low edu. Level, literacy, decrease access to med. care, nursing home, rehab)? @ -No Was there de-escalation of care discussed even if they declined (Discuss DNR or withdrawal of care, Hospice)? DNR status @ -No What co-morbidities impacted this encounter? (DM, HTN, Smoking, COPD, CAD, Cancer, CVA, ARF, Chemo, Hep., AIDS, mental health diagnosis, sleep apnea, morbid obesity)? @ -Smoker Was patient admitted / discharged? Hospital course, mention meds given and route, prescriptions, significant lab abnormalities, going to OR and other pertinent info. @ -Discharge. 38-year-old female presented to ER with chief complaint of right hand laceration s/p trip and fall. History and physical exam completed. Vitals stable. Exam remarkable for tenderness to right 5th metacarpal. No anatomical snuffbox tenderness. Right upper extremity neurovascular intact. Limited active flexion of right fifth digit. 1 cm superficial laceration to the palmar aspect of right hand. No active bleeding. Wound is not gaping with deep structures intact, sutures are not indicated at this time. No other acute findings on exam. Tetanus is up-to-date, per patient. Right hand x-rays obtained negative for acute osseous process. There is internal hardware present in the fifth metacarpal. Due to limited active flexion of right fifth digit orthopedic follow-up advised, referral given. Wound care and return parameters discussed with patient. Advise close follow-up with PCP. Patient discharged in stable condition. Patient verbally expressed understanding and agreement care plan. Case discussed with ED attending, Dr. Douglas. Undiagnosed new problem with uncertain prognosis? @ -No Drug Therapy requiring intensive monitoring for toxicity (Heparin, Nitro, Insulin, Cardizem)? @ -No Were any procedures done? @ -No Diagnosis/symptom? @ -Fall/laceration/nicotine dependence Acute, or Chronic, or Acute on Chronic? @ -Acute Uncomplicated (without systemic symptoms) or Complicated (systemic symptoms)? @ -Uncomplicated Side effects of treatment? @ -No Exacerbation, Progression, or Severe Exacerbation? @ -No Poses a threat to life or bodily function? How? (Chest pain, [place], [place], pneumonia, PE, COPD, DKA, ARF, appy, cholecystitis, CVA, Diverticulitis, Homicidal, Suicidal, threat to staff... and all critical care pts) @ -No - Radiology Data Radiology results: report reviewed, image reviewed Disposition Clinical Impression: Laceration, Fall, Nicotine dependence Disposition: HOME SELF-CARE Condition: Stable Instructions (If sedation given, give patient instructions): How to Stop Smoking (ED), Laceration (ED) Additional Instructions: Keep area clean and dry wash multiple times a day with warm soapy water. Follow-up with PCP. Turn to the ER for any new or worsening concerns. Is patient prescribed a controlled substance at d/c from ED?: No Referrals: Villa Loco MD [Primary Care Provider] - 1-2 days Maurice Gutierrez DO [Doctor of Osteopathic Medicine] - 1-2 days Time of Disposition: 08:40
--- NOTE | 2024-03-13 08:17 | XR ---
EXAMINATION TYPE: XR hand complete RT DATE OF EXAM: 03/13/2024 7:57 AM CLINICAL INDICATION:Female, 38 years old with history of fall injury; [facility] COMPARISON: None TECHNIQUE: XR hand complete RT Frontal, lateral and oblique views were obtained. FINDINGS: Normal alignment of the visualized joints. No acute osseous pathology is identified. No e vidence of soft tissue swelling. No significant degeneration fixation hardware in the fifth metacarpa l appears intact. IMPRESSION: 1. No acute osseous pathology. 2. Fixation hardware in the fifth metacarpal is intact.
[2024-03-13 08:47] VITALS: BP 115/81; PULSE 71; TEMP 98
== END 2024-03-13 08:45 | disposition home or self-care (01) ==
LOC: EC 07:06
DX: S61.411A Laceration without foreign body of right hand, initial encounter (principal); F17.200 Nicotine dependence, unspecified, uncomplicated; Z91.09 Other allergy status, other than to drugs and biological substances; Z88.5 Allergy status to narcotic agent; Z88.2 Allergy status to sulfonamides; Z88.1 Allergy status to other antibiotic agents; W18.40XA Slipping, tripping and stumbling without falling, unspecified, initial encounter
CPT/HCPCS: 90471; 99283; 99406

== ENCOUNTER 2024-05-23 21:57 | Emergency (ER) | payer OTHER ==
[2024-05-23 22:07] VITALS: TEMP 97.9
[2024-05-23] MEDS: HYDROmorphone 1 MG/ML 1 ML SYRINGE IM STA ×2 (22:35→23:17)
[2024-05-23] MEDS: LIDOCAINE 1% INJ 10MG/ML (20 ML MDV) SQ ONE (22:38)
--- NOTE | 2024-05-23 22:52 | ED ---
Animal Bite HPI - General Source: patient, RN notes reviewed Mode of arrival: ambulatory Limitations: no limitations <RuffRenetta - Last Filed: 05/24/24 03:56> <Yesenia Haider - Last Filed: 05/24/24 21:09> - General Chief Complaint: Animal Bite Stated Complaint: Hands/Legs Laceration -Dog Bite Time Seen by Provider: 05/23/24 22:30 - History of Present Illness Initial Comments: 38-year-old female presenting with dog bites to bilateral upper extremities 30 minutes prior to arrival. States her dogs got into a fight, and she was bit several times in the bilateral hands and forearms while trying to break up the fight. She was bit 1 time in the right thigh. She is complaining of right wrist pain as well as bilateral hand pain. Last tetanus was 2 years ago. States she is allergic to morphine, however tolerates Dilaudid well. Patient states dogs were all pets of hers/her daughters and the dogs are all up-to-date on vaccinations. (Renetta Ruff) - Related Data Previous Rx's Medication Instructions Recorded Ketorolac [Toradol] 10 mg PO Q8HR #15 tab 05/11/18 Amoxic-Pot Clav 875-125Mg 1 tab PO BID 7 Days #14 tab 03/08/22 [Augmentin 875-125] HYDROcodone/APAP 5-325MG [[place] 5] 1 each PO Q6HR PRN #12 tab 03/08/22 Ibuprofen [Motrin] 600 mg PO Q8HR PRN #20 tab 03/08/22 Albuterol Inhaler [Ventolin Hfa 2 puff INHALATION Q4HR PRN #1 each 07/12/22 Inhaler] Azithromycin [Zithromax Tri-Christian (3 500 mg PO DAILY 3 Days #3 tab 07/12/22 tabs)] predniSONE [Deltasone] 40 mg PO DIRECTED 5 Days #10 tab 07/12/22 Amoxic-Pot Clav 875-125Mg 1 tab PO Q12HR #20 tab 05/24/24 [Augmentin 875-125] Ketorolac [Toradol] 10 mg PO Q8HR #15 tab 05/24/24 Allergies Allergy/AdvReac Type Severity Reaction Status Date / Time adhesive Allergy Unknown Unknown Verified 05/23/24 22:07 codeine Allergy Unknown Unknown Verified 05/23/24 22:07 morphine Allergy Unknown Unknown Verified 05/23/24 22:07 Sulfa (Sulfonamide Allergy Unknown Unknown Verified 05/23/24 22:07 Antibiotics) Review of Systems ROS Other: All systems not noted in ROS Statement are negative. <Renetta Ruff - Last Filed: 05/24/24 03:56> ROS Other: All systems not noted in ROS Statement are negative. <Jose D Haideren - Last Filed: 05/24/24 21:09> ROS Statement: Those systems with pertinent positive or pertinent negative responses have been documented in the HPI. Past Medical History Past Medical History: Asthma, COPD History of Any Multi-Drug Resistant Organisms: None Reported Past Surgical History: Section, Hysterectomy, Orthopedic Surgery Additional Past Surgical History / Comment(s): ablation-cervical, upper and lower gi scope Past Psychological History: No Psychological Hx Reported Smoking Status: Current every day smoker Past Alcohol Use History: None Reported Past Drug Use History: None Reported <Renetta Ruff - Last Filed: 05/24/24 03:56> General Exam Limitations: no limitations General appearance: alert, anxious Head exam: Present: atraumatic, normocephalic, normal inspection Extremities exam: Present: tenderness, normal capillary refill. Absent: normal inspection (Multiple lacerations and abrasions scattered across bilateral wrists and hands with active bleeding. Limited range of motion of right wrist, limited flexion of right fifth digit with deep 8 cm laceration proximal to 5th metacarpophalangeal joint. no snuffbox tenderness bilaterally.), full ROM (Limited range of motion of right wrist), pedal edema, joint swelling, calf tenderness Neurological exam: Present: alert, oriented X3 Psychiatric exam: Present: normal affect, anxious Skin exam: Present: warm, dry, intact, normal color. Absent: rash <Renetta Ruff - Last Filed: 05/24/24 03:56> Course Vital Signs 05/23/24 05/24/24 05/24/24 22:04 00:20 02:14 Temperature 97.9 F Pulse Rate 124 H 71 82 Respiratory 18 16 18 Rate Blood Pressure 112/67 105/71 141/85 O2 Sat by Pulse 95 94 L 97 Oximetry Procedures - Laceration Laceration #1 Consent Obtained: verbal consent Indication: laceration Site: hand Size (cm): 3 Description: linear Depth: simple, single layer Anesthetic Used: lidocaine 1%, without epi Anesthesia Technique: local infiltration Amount (mls): 2 Pre-repair: wound explored, irrigated extensively, deep structures intact Type of Sutures: nylon Size of Sutures: 4-0 Number of Sutures: 1 Technique: simple, interrupted Patient Tolerated Procedure: well, no complications Laceration #2 Consent Obtained: verbal consent Indication: laceration Site: hand Size (cm): 3 Description: linear Depth: simple, single layer Anesthetic Used: lidocaine 1%, without epi Anesthesia Technique: local infiltration Amount (mls): 2 Pre-repair: wound explored, irrigated extensively, deep structures intact Type of Sutures: nylon Size of Sutures: 4-0 Number of Sutures: 1 Technique: simple, interrupted Patient Tolerated Procedure: well, no complications Laceration #3 Consent Obtained: verbal consent Indication: laceration Site: hand Size (cm): 8 Description: irregular Depth: involves muscle layer, involves tendon Anesthetic Used: lidocaine 1%, without epi Anesthesia Technique: local infiltration Amount (mls): 5 Pre-repair: wound explored, irrigated extensively Type of Sutures: nylon Size of Sutures: 4-0 Number of Sutures: 5 Technique: simple, interrupted Patient Tolerated Procedure: well, no complications Laceration #4 Consent Obtained: verbal consent Indication: laceration Site: hand Size (cm): 5 Description: linear Depth: simple, single layer Anesthetic Used: lidocaine 1%, without epi Anesthesia Technique: local infiltration Amount (mls): 3 Pre-repair: wound explored, irrigated extensively, deep structures intact Type of Sutures: nylon Size of Sutures: 4-0 Number of Sutures: 3 Technique: simple, interrupted Patient Tolerated Procedure: well, no complications - Orthopedic Splinting/Casting Injury #1 Side: right Upper Extremity Injury Location: short arm Upper Extremity Immobilizer: ulnar gutter <Renetta Ruff - Last Filed: 05/24/24 03:56> - Laceration Laceration #1 Additional Comments: Neurovascularly intact status post procedure (Renetta Ruff) Laceration #2 Additional Comments: Neurovascularly intact status post procedure (Renetta Ruff) Laceration #3 Additional Comments: Neurovascularly intact status post procedure (Renetta Ruff) Laceration #4 Additional Comments: Neurovascularly intact status post procedure (Renetta Ruff) - Orthopedic Splinting/Casting Injury #1 Additional Comments: Neurovascularly intact status post procedure (Renetta uRff) Medical Decision Making <Renetta Ruff - Last Filed: 05/24/24 03:56> <Yesenia Haider - Last Filed: 05/24/24 21:09> - Medical Decision Making Was pt. sent in by a medical professional or institution (, PA, AUTOMOBILE SERVICE WRITER, urgent care, hospital, or residential...) When possible be specific @ -No Did you speak to anyone other than the patient for history (EMS, parent, family, police, friend...)? What history was obtained from this source @ -No Did you review nursing and triage notes (agree or disagree)? Why? @ -I reviewed and agree with nursing and triage notes Were old charts reviewed (outside hosp., previous admission, EMS record, old EKG, old radiological studies, urgent care reports/EKG's, residential records)? Report findings @ -No old charts were reviewed Differential Diagnosis (chest pain, altered mental status, abdominal pain women, abdominal pain men, vaginal bleeding, weakness, fever, dyspnea, syncope, headache, dizziness, GI bleed, back pain, seizure, CVA, palpatations, mental health, musculoskeletal)? @ -Differential Musculoskeletal Muscular strain, contusion, ligament sprain, fracture, arthritis, septic arthritis, bursitis, cellulitis, muscle spasm, nerve compression, DVT, arterial occlusion, herpes zoster, electrolyte abnormality, tumor.... This is not meant to be in all inclusive list EKG interpreted by me (3pts min.). @ -None X-rays interpreted by me (1pt min.). @ -X-ray bilateral hands reveal acute nondisplaced intra-articular commuted fracture through base of first distal phalanx and right hand, soft tissue lacerations second distal phalanx and left hand CT interpreted by me (1pt min.). @ -None done U/S interpreted by me (1pt. min.). @ -None done What testing was considered but not performed or refused? (CT, X-rays, U/S, labs)? Why? @ -Tetanus not given due to patient states she had tetanus updated 2 years ago. What meds were considered but not given or refused? Why? @ -None Did you discuss the management of the patient with other professionals (professionals i.e. , PA, AUTOMOBILE SERVICE WRITER, lab, RT, psych nurse, case management social worker, carton inspector, teacher, aoc plans intelligence officer chief, continuous pillowcase cutter)? Give summary @ -I spoke with Dr. Rodríguez who is the on-call orthopedic surgeon regarding concern of tendon involvement in right fifth digit as patient is having difficulty extending fifth digit with a deep laceration directly proximal. Dr. Rodríguez recommends loose approximation at this time with the splint and close outpatient follow-up with Dr. Nair Was smoking cessation discussed for >3mins.? @ -No Was critical care preformed (if so, how long)? @ -No Were there social determinants of health that impacted care today? How? (Homelessness, low income, unemployed, alcoholism, drug addiction, transportation, low edu. Level, literacy, decrease access to med. care, longterm, rehab)? @ -No Was there de-escalation of care discussed even if they declined (Discuss DNR or withdrawal of care, Hospice)? DNR status @ -No What co-morbidities impacted this encounter? (DM, HTN, Smoking, COPD, CAD, Cancer, CVA, ARF, Chemo, Hep., AIDS, mental health diagnosis, sleep apnea, morbid obesity)? @ -None Was patient admitted / discharged? Hospital course, mention meds given and route, prescriptions, significant lab abnormalities, going to OR and other pertinent info. @ -Patient was discharged. This is a 38-year-old female presenting with multiple dog bites to bilateral hands 1 hour prior to arrival. Tetanus is up-to-date. Upon examination, there are multiple lacerations present upon hands. Rabies not indicated at this time as patient claims all dogs were pets and are fully vaccinated. X-ray reveals acute nondisplaced intra-articular comminuted fracture through base of first distal phalanx and right hand. Patient was given IV antibiotics and analgesics. There was questionable dorsal surface foreign body on the left second digit, however upon examination this appears to be skin. Wounds were thoroughly irrigated, sutures were loosely approximated in 4 lacerations. I spoke with Dr. Rodríguez regarding concern of tendon involvement and fifth right digit who recommends loose approximation and close outpatient follow-up. Ulnar gutter splint and finger splint applied. Return precautions discussed. Supportive care discussed and patient is agreeable to plan. Advise close follow-up with Dr. Nair Sunday. Case was discussed with my ED attending Dr. Hiader. Patient discharged in stable condition. Undiagnosed new problem with uncertain prognosis? @ -No Drug Therapy requiring intensive monitoring for toxicity (Heparin, Nitro, Insulin, Cardizem)? @ -No Were any procedures done? @ -Yes, 10 sutures placed and ulnar gutter splint performed Diagnosis/symptom? @ -Multiple dog bites on bilateral hands Acute, or Chronic, or Acute on Chronic? @ -Acute Uncomplicated (without systemic symptoms) or Complicated (systemic symptoms)? @ -Uncomplicated Side effects of treatment? @ -No Exacerbation, Progression, or Severe Exacerbation? @ -No Poses a threat to life or bodily function? How? (Chest pain, [place], [place], pneumonia, PE, COPD, DKA, ARF, appy, cholecystitis, CVA, Diverticulitis, Homicidal, Suicidal, threat to staff... and all critical care pts) @ -Unlikely (Renetta Ruff) Pt presented by myself by SIDDHARTH. A focused physical exam was performed by myself, agree with assessment as above by SIDDHARTH. We discussed plan for IV abx, analgesics, hand surgery consult, wound irrigation, laceration repair, thumb spica splint for first phalanx fracture. Renetta discussed case with Dr. Rodríguez, reported recs as above. (Yesenia Haider) Disposition Is patient prescribed a controlled substance at d/c from ED?: No Time of Disposition: 01:43 <Renetta Ruff - Last Filed: 05/24/24 03:56> <Yesenia Haider - Last Filed: 05/24/24 21:09> Clinical Impression: Dog bite of multiple sites of hand and fingers, Laceration of multiple sites of hand and fingers Disposition: HOME SELF-CARE Condition: Stable Instructions (If sedation given, give patient instructions): Animal Bite (ED) Additional Instructions: Take Augmentin as prescribed. Follow-up with Dr. Nair on Sunday. Keep splint dry. Take Toradol as needed for pain. Please return to the Emergency Department if symptoms worsen or any other concerns. Prescriptions: Amoxic-Pot Clav 875-125Mg [Augmentin 875-125] 1 tab PO Q12HR #20 tab Ketorolac [Toradol] 10 mg PO Q8HR #15 tab Referrals: Villa Loco MD [Primary Care Provider] - 1-2 days Janet Nair DO [Doctor of Osteopathic Medicine] - 1-2 days
--- NOTE | 2024-05-23 23:07 | XR ---
EXAMINATION TYPE: XR hand complete bilateral DATE OF EXAM: 05/23/2024 CLINICAL HISTORY: bilateral hand injury. Multiple lacerations. Dog bite injury. TECHNIQUE: Frontal, lateral and oblique images of the bilateral hands are obtained. COMPARISON: Prior right hand x-ray March 13, 2024 FINDINGS: Evaluation is suboptimal as incomplete extension of the phalanges is noted particularly in the right hand. On lateral view there appears to be acute nondisplaced intra-articular comminuted fractures through t he base of the first distal phalanx in the right hand. Postsurgical change to the fifth metacarpal is redemonstrated. There is soft tissue laceration injury at the level of the second distal phalanx in the left hand. Ca nnot exclude dorsal surface 4 mm foreign body. IMPRESSION: As above. [facility], , 05/23/2024 11:05 PM
[2024-05-24 02:15] VITALS: BP 141/85; PULSE 82; RESP 18
== END 2024-05-24 02:16 | disposition home or self-care (01) ==
LOC: EC 21:57
CPT/HCPCS: 12053; 96365; 96372; 99284

== ENCOUNTER 2024-07-13 21:50 | Emergency (ER) | payer OTHER ==
[2024-07-13 22:10] VITALS: RESP 16; TEMP 98.4
--- NOTE | 2024-07-13 22:52 | ED ---
Lower Extremity Injury HPI - General Chief Complaint: Extremity Injury, Lower Stated Complaint: left nkle injury Time Seen by Provider: 07/13/24 22:10 Source: patient, RN notes reviewed Mode of arrival: ambulatory Limitations: no limitations - History of Present Illness Initial Comments: 38-year-old female presenting with left ankle injury 12 hours ago. Patient states she got out of bed this morning and twisted her left ankle. She is having pain on the lateral aspect of the ankle worse with weightbearing. Patient was told she had a hairline fracture at urgent care and was sent here for a "walking boot". - Related Data Previous Rx's Medication Instructions Recorded Ketorolac [Toradol] 10 mg PO Q8HR #15 tab 05/11/18 Amoxic-Pot Clav 875-125Mg 1 tab PO BID 7 Days #14 tab 03/08/22 [Augmentin 875-125] HYDROcodone/APAP 5-325MG [Rule 5] 1 each PO Q6HR PRN #12 tab 03/08/22 Ibuprofen [Motrin] 600 mg PO Q8HR PRN #20 tab 03/08/22 Albuterol Inhaler [Ventolin Hfa 2 puff INHALATION Q4HR PRN #1 each 07/12/22 Inhaler] Azithromycin [Zithromax Tri-Christian (3 500 mg PO DAILY 3 Days #3 tab 07/12/22 tabs)] predniSONE [Deltasone] 40 mg PO DIRECTED 5 Days #10 tab 07/12/22 Amoxic-Pot Clav 875-125Mg 1 tab PO Q12HR #20 tab 05/24/24 [Augmentin 875-125] Ketorolac [Toradol] 10 mg PO Q8HR #15 tab 05/24/24 Allergies Allergy/AdvReac Type Severity Reaction Status Date / Time adhesive Allergy Unknown Unknown Verified 07/13/24 22:07 codeine Allergy Unknown Unknown Verified 07/13/24 22:07 morphine Allergy Unknown Unknown Verified 07/13/24 22:07 Sulfa (Sulfonamide Allergy Unknown Unknown Verified 07/13/24 22:07 Antibiotics) Review of Systems ROS Statement: Those systems with pertinent positive or pertinent negative responses have been documented in the HPI. ROS Other: All systems not noted in ROS Statement are negative. Past Medical History Past Medical History: Asthma, COPD History of Any Multi-Drug Resistant Organisms: None Reported Past Surgical History: Section, Hysterectomy, Orthopedic Surgery Additional Past Surgical History / Comment(s): ablation-cervical, upper and lower gi scope, bialteral hand Past Psychological History: No Psychological Hx Reported Smoking Status: Current every day smoker Past Alcohol Use History: None Reported Past Drug Use History: None Reported General Exam Limitations: no limitations General appearance: alert, in no apparent distress Left Lower Leg exam: Present: normal inspection, full ROM. Absent: tenderness, swelling Ankle exam: Present: full ROM, tenderness, swelling. Absent: normal inspection (Edema present over lateral malleolus of left ankle with tenderness to palpat ion), abrasion, laceration, ecchymosis, deformity, erythema Foot/Toe exam: Present: normal inspection, full ROM. Absent: tenderness, swelling Neurovascular tendon exam: Present: no vascular compromise. Absent: pulse deficit, abnormal cap refill, motor deficit, sensory deficit Neurological exam: Present: alert, oriented X3 Psychiatric exam: Present: normal affect, normal mood Skin exam: Present: warm, dry, intact, normal color. Absent: rash Course Vital Signs 07/13/24 07/14/24 22:08 00:30 Temperature 98.4 F Pulse Rate 84 62 Respiratory 16 16 Rate Blood Pressure 96/60 127/76 O2 Sat by Pulse 99 99 Oximetry Medical Decision Making - Medical Decision Making Was pt. sent in by a medical professional or institution (HARISH Toro, NUCLEAR MEDICINE PHYSICIAN, urgent care, hospital, or prison...) When possible be specific @ -No Did you speak to anyone other than the patient for history (EMS, parent, family, police, friend...)? What history was obtained from this source @ -No Did you review nursing and triage notes (agree or disagree)? Why? @ -I reviewed and agree with nursing and triage notes Were old charts reviewed (outside hosp., previous admission, EMS record, old EKG, old radiological studies, urgent care reports/EKG's, prison records)? Report findings @ -No old charts were reviewed Differential Diagnosis (chest pain, altered mental status, abdominal pain women, abdominal pain men, vaginal bleeding, weakness, fever, dyspnea, syncope, headache, dizziness, GI bleed, back pain, seizure, CVA, palpatations, mental health, musculoskeletal)? @ -Differential Musculoskeletal Muscular strain, contusion, ligament sprain, fracture, arthritis, septic arthritis, bursitis, cellulitis, muscle spasm, nerve compression, DVT, arterial occlusion, herpes zoster, electrolyte abnormality, tumor.... This is not meant to be in all inclusive list EKG interpreted by me (3pts min.). @ -None X-rays interpreted by me (1pt min.). @ -X-ray left ankle reveals no acute process CT interpreted by me (1pt min.). @ -None done U/S interpreted by me (1pt. min.). @ -None done What testing was considered but not performed or refused? (CT, X-rays, U/S, labs)? Why? @ -None What meds were considered but not given or refused? Why? @ -None Did you discuss the management of the patient with other professionals (professionals i.e. , PA, NUCLEAR MEDICINE PHYSICIAN, lab, RT, psych nurse, social service worker, sap pp consultant, teacher, control systems drafting officer, case maker)? Give summary @ -No Was smoking cessation discussed for >3mins.? @ -No Was critical care preformed (if so, how long)? @ -No Were there social determinants of health that impacted care today? How? (Homelessness, low income, unemployed, alcoholism, drug addiction, transportation, low edu. Level, literacy, decrease access to med. care, senior care, rehab)? @ -No Was there de-escalation of care discussed even if they declined (Discuss DNR or withdrawal of care, Hospice)? DNR status @ -No What co-morbidities impacted this encounter? (DM, HTN, Smoking, COPD, CAD, Cancer, CVA, ARF, Chemo, Hep., AIDS, mental health diagnosis, sleep apnea, morbid obesity)? @ -None Was patient admitted / discharged? Hospital course, mention meds given and route, prescriptions, significant lab abnormalities, going to OR and other pertinent info. @ -Discharge. This is a 38-year-old female presenting with left ankle injury earlier this morning. Patient is able to weight-bear. Neurovascularly intact. There is edema and tenderness at lateral malleolus. X-ray reveals no acute fracture or dislocation. Discussed negative results with patient. Patient was given Aircast and advised limited weightbearing. Advised to follow-up with orthopedics if symptoms persist. Supportive care/return precautions discussed patient is agreeable to plan. Case was discussed with my ED attending Dr. Haider. Patient discharged in stable condition. Undiagnosed new problem with uncertain prognosis? @ -No Drug Therapy requiring intensive monitoring for toxicity (Heparin, Nitro, Insulin, Cardizem)? @ -No Were any procedures done? @ -No Diagnosis/symptom? @ -Left ankle sprain Acute, or Chronic, or Acute on Chronic? @ -Acute Uncomplicated (without systemic symptoms) or Complicated (systemic symptoms)? @ -Uncomplicated Side effects of treatment? @ -No Exacerbation, Progression, or Severe Exacerbation? @ -No Poses a threat to life or bodily function? How? (Chest pain, [place], [place], pneumonia, PE, COPD, DKA, ARF, appy, cholecystitis, CVA, Diverticulitis, Homicidal, Suicidal, threat to staff... and all critical care pts) @ -No Disposition Clinical Impression: Left ankle sprain Disposition: HOME SELF-CARE Condition: Stable Instructions (If sedation given, give patient instructions): Ankle Sprain (ED) Additional Instructions: Follow-up with orthopedics if symptoms persist. Limit weightbearing on left ankle. Take ibuprofen or Tylenol as needed for pain. Please return to the Emergency Department if symptoms worsen or any other concerns. Is patient prescribed a controlled substance at d/c from ED?: No Referrals: Ash Cervantes MD [Primary Care Provider] - 1-2 days Varinder Montez MD [STAFF PHYSICIAN] - 1-2 days Time of Disposition: 00:25
--- NOTE | 2024-07-14 00:04 | XR ---
EXAM: XR Left Ankle Complete, 3 or More Views CLINICAL HISTORY: ITS.REASON XR Reason: left ankle injury TECHNIQUE: Frontal, lateral and oblique views of the left ankle. COMPARISON: No previous studies. FINDINGS: Bones/joints: Ankle mortise is preserved. Calcaneus is unremarkable. No acute fracture or dislocation. Soft tissues: Soft tissues are within normal limits. IMPRESSION: 1. No acute fracture or dislocation. 2. Ankle mortise is preserved.
[2024-07-14 00:34] VITALS: BP 127/76; PULSE 62
== END 2024-07-14 00:30 | disposition home or self-care (01) ==
LOC: EC 21:50
DX: S93.402A Sprain of unspecified ligament of left ankle, initial encounter (principal); F17.200 Nicotine dependence, unspecified, uncomplicated; Z88.1 Allergy status to other antibiotic agents; Z88.2 Allergy status to sulfonamides; Z88.5 Allergy status to narcotic agent; Z91.09 Other allergy status, other than to drugs and biological substances; X50.1XXA Overexertion from prolonged static or awkward postures, initial encounter
CPT/HCPCS: 99283